=== PATIENT | female | born 1955 | race Caucasian/White ===

== ENCOUNTER → 2016-06-07 | Outpatient (CLI) | payer OTHER ==
[~2016-06-07] MED LIST: ASPIRIN EC81 M1 PO; ASPIRIN81 M2 PO; ATIVAN PO; ATIVAN2 M1 PO; CIPRO PO; DESYREL50 MG PO; FLOMAX0.4 M1 PO; HYDROCODON-ACE1 EAC9 PO; LEVOTHYROXINE50 MCG PO; LEXAPRO PO; LEXAPRO20 MG PO; LIPITOR PO; NICOTINE TRANSD21 MG EXT; PLAVIX PO; SYNTHROID125 PO; TAMOXIFEN CITRA20 MG PO; TIROSINT50 MCG PO
--- NOTE | ~2016-06-07 | US135 ---
[facility] A Service of [facility] & [facility] RADIOLOGY TEXT RESULTS PATIENT: ALICIA ARREOLA LOCATION: CNIV : 59 UNIT #: [id number] AGE: [address]: Ole Wallace MD SEX: F ORDER DR: [id number] [facility] [address] [place], [place] [address] [id number] O MR#: [id number] Acc #: [id number] NAME: ALICIA ARREOLA : 1955 SEX: F STUDY DATE/TIME: 06/07/2016 12:12 UNIT: CNIV ROOM: STUDY DESCRIPTION: US U/L Ext Art Study Comp Khanh Attending Physician: Ole Wallace M.D. Referring Physician: Ole Wallace M.D. Ordering Physician: Ole Wallace M.D. Primary Care Physician: Alber Almaguer M.D. MEDICAL IMAGING REPORT This report is preliminary unless electronic signature is present EXAM Ankle brachial indices with segmental pressures. DATE OF EXAMINATION: 06/07/16 HISTORY: Vascular disease. FINDINGS Right brachial artery pressure is 124, the right high pressure 105, lower thigh 98, calf 109. The right dorsalis pedis pressure is 90 with an ankle brachial index of 0.71. The right posterior tibial pressure is 100, with an ankle brachial index of 0.79. Right digital pressure 62, with a toe index of 0.49. The left brachial artery pressure is 126. The left upper thigh pressure is 95, lower thigh 93, calf 81. The left dorsalis pedis pressure is 68, with ankle brachial index of 0.54. The left posterior tibial pressure is 73, with an ankle brachial index of 0.58. The left digital pressure is 55, with a toe index of 0.44. Waveforms at the posterior tibial arteries are biphasic bilaterally. The left dorsalis pedis waveforms are monophasic, as where they are triphasic in the dorsalis pedis. Pulse volume recordings demonstrate a sharp upstroke and systolic peak, bilaterally. 1. The right JOHN is 0.79, consistent with moderate arterial insufficiency. This represents a decrease from the 10/2015 study. 2. The left JOHN is 0.58, consistent with moderate arterial insufficiency. Also a decrease from the 10/2015 study. [facility]. [facility] A Service of [facility] RADIOLOGY TEXT RESULTS PATIENT: ALICIA ARREOLA LOCATION: CNIV : 59 UNIT #: [id number] AGE: [address]: Ole Wallace MD SEX: F ORDER DR: Dictated by... Melvin Jimenez M.D. THIS IS AN ELECTRONICALLY VERIFIED REPORT Melvin Jimenez M.D. at 06/09/2016 12:47 PM AC/toni TD: 06/08/2016 07:35 JOB #: [id number] MEDICAL IMAGING REPORT COPY
--- NOTE | ~2016-06-07 | US37 ---
[facility] A Service of [facility] & [facility] RADIOLOGY TEXT RESULTS PATIENT: ALICIA ARREOLA LOCATION: CNIV : 59 UNIT #: [id number] AGE: [address]: Ole Wallace MD SEX: F ORDER DR: [id number] [facility] [address] [place], [place] [address] [id number] O MR#: [id number] [facility] #: [id number] NAME: ALICIA ARREOLA : 1955 SEX: F STUDY DATE/TIME: 06/07/2016 11:54 UNIT: CNIV ROOM: STUDY DESCRIPTION: US Carotid W/Doppler Bilateral Attending Physician: Ole Wallace M.D. Referring Physician: Ole Wallace M.D. Ordering Physician: Ole Wallace M.D. Primary Care Physician: Alber Almaguer M.D. MEDICAL IMAGING REPORT This report is preliminary unless electronic signature is present EXAM Bilateral carotid duplex 06/07/2016 HISTORY Carotid artery disease. FINDINGS There is patent flow seen throughout the right common carotid, internal carotid, and external carotid arteries. There is diffuse, mild atherosclerosis lining the right common carotid artery. At the carotid bifurcation, there is some mild echogenic, irregular appearing plaque. The right common carotid artery peak velocity is 101 cm/sec. The right internal carotid artery peak systolic/end-diastolic velocities are: proximal 99/28 cm/sec, mid 98/28 cm/sec, distal 141/44 cm/sec. The right external carotid artery peak velocity is 100 cm/sec, and vertebral artery 63 cm/sec. The right ICA:CCA ratio is 1.4. There is patent flow seen throughout the left common carotid, internal carotid, and external carotid arteries. There is some diffuse irregular, echogenic atherosclerosis of the left common carotid artery. There is some irregular, heterogeneous, and echogenic plaque seen in the left carotid bifurcation. The left common carotid artery peak velocity is 95 cm/sec. The left internal carotid artery peak systolic/end-diastolic velocities are: proximal 93/26 cm/sec, mid 106/36 cm/sec, distal 133/45 cm/sec. The left external carotid artery peak velocity is 87 cm/sec, vertebral artery 65 cm/sec. The left ICA:CCA ratio is 1.4. IMPRESSION 1. The right carotid artery has mild atherosclerosis, consistent with 50% to 69% stenosis by duplex criteria. This represents a mild increase from the 03/2015 study. 2. The left carotid artery has [id number] atherosclerosis, [facility] A Service of [facility] RADIOLOGY TEXT RESULTS PATIENT: ALICIA ARREOLA [id number] [birth year] UNIT #: [id number] AGE: [address]: Ole Wallace MD SEX: F ORDER DR: consistent with 50% to 69% stenosis by duplex criteria. Again, this represents a slight increase from the previous 03/2015 study. 3. Vertebral flow is antegrade bilaterally. Dictated by... Melvin Jimenez M.D. THIS IS AN ELECTRONICALLY VERIFIED REPORT Melvin Jimenez M.D. at 06/09/2016 12:45 PM Robbie TD: 06/08/2016 07:53 JOB #: [id number] MEDICAL IMAGING REPORT COPY
== END | disposition home or self-care (01) ==
LOC: CNIV 11:41
DX: I73.9 Peripheral vascular disease, unspecified (principal); I65.23 Occlusion and stenosis of bilateral carotid arteries
CPT/HCPCS: 93880; 93923

== ENCOUNTER → 2016-06-14 | Outpatient (CLI) | payer OTHER ==
[2016-06-14 11:58] LABS: CREATININE SERUM 0.7 mg/dL (0.6-1.4); GLOM FILT RATE Estimated ABOVE60 mL/min (>60)
== END | disposition home or self-care (01) ==
LOC: CLAB 11:06
PROVIDERS: Surgery Vascular Surgery
DX: I73.9 Peripheral vascular disease, unspecified (principal)
CPT/HCPCS: 36415; 82565